=== PATIENT | male | born 1955 | race Caucasian/White ===

== ENCOUNTER 2016-07-02 15:18 | Inpatient (IN) | payer MEDICAID ==
[~2016-07-02] VITALS: Ht 182.9 cm; Wt 69.7 kg
[~2016-07-02 15:18] MED LIST: ALBU18HF INH; ALBU8.5H3 INH; AMIO200T42 PO; ASPI-621 PO; AZIT-14 PO; BUDE10.2 INH; CEFD300C2 PO; CEFT2FRO2 IV; CLOP75TA PO; DOCU-30 PO; ENAL2.5T PO; FLUT1AER INH; FURO-92 PO; GUAI600T22 PO; HYDR-3138 PO; HYDR-3144 PO; IPRA12.9 INH; IPRA15SP2 INH; LISI5TAB7 PO; METO25TA35 PO; METO50TA82 PO; OXYC5TAB3 PO; POTA20TA14 PO; PRED20TA PO; VORI200T PO
[2016-07-02] MEDS ORDERED: IBUP-1222 PO (15:44)
[2016-07-02] MEDS ORDERED: GABA-827 PO (15:44)
[2016-07-02] MEDS ORDERED: ENAL5TAB PO (15:44)
[2016-07-02] MEDS ORDERED: CEPH-368 PO (15:44)
[2016-07-02] MEDS ORDERED: CYCL-259 PO (15:44)
[2016-07-02 16:33] LABS: BLOOD UREA NITROGEN 10 mg/dL (7-18)
[2016-07-02 16:38] LABS: ACETAMINOPHEN < 2 mcg/mL (10-30)
[2016-07-02] MEDS ORDERED: SODIUM CHLORIDE 0.9% 1,000 ML IV ONE (17:13)
[2016-07-02] MEDS ORDERED: CEFAZOLIN PMX 1GM/50ML 50 ML ONE (17:25)
[2016-07-02] MEDS ORDERED: SODIUM CHLORIDE FLUSH 10ML SYR IVF ONE (17:30)
[2016-07-02] MEDS ORDERED: CEFAZOLIN PMX 1GM/50ML 50 ML IVPB ONE (17:30)
[2016-07-02] MEDS ORDERED: ONDANSETRON ODT 4 MG PO PRN (18:00)
[2016-07-02] MEDS ORDERED: LORazepam 1MG TABLET PO PRN (18:00)
[2016-07-02] MEDS ORDERED: IPRATROPIUM BROMIDE INH SCH (18:00)
[2016-07-02] MEDS ORDERED: ONDANSETRON 2MG/ML, 2ML IVP PRN (18:00)
[2016-07-02] MEDS ORDERED: POLYETHYLENE GLYCOL 17 GM PACKET PO PRN (18:00)
[2016-07-02] MEDS ORDERED: GABAPENTIN 300 MG CAPSULE PO PRN (18:00)
[2016-07-02] MEDS ORDERED: LABETALOL 5MG/ML, 20ML IV PRN (18:00)
[2016-07-02] MEDS ORDERED: BISACODYL 10 MG SUPP PR PRN (18:00)
[2016-07-02 18:44] LABS: DAU SCREEN DISCLAIMER
[2016-07-02 19:49] VITALS: BP 133/77
[2016-07-02] MEDS ORDERED: NICOTINE 14MG/24 HR PATCH.TD24 TD ONE (20:00)
[2016-07-02] MEDS ORDERED: ALBUTEROL SULFATE 2.5 MG/3 ML NPPB PRN (20:00)
[2016-07-02] MEDS: FUROSEMIDE 40 MG TABLET PO SCH (20:29)
[2016-07-02] MEDS: METOPROLOL TARTRATE 25 MG TABLET PO SCH (20:29)
[2016-07-02] MEDS: ACETAMINOPHEN 325 MG TABLET PO PRN (20:29)
[2016-07-02] MEDS: DOCUSATE 100 MG CAPSULE PO SCH (20:29)
[2016-07-02] MEDS: SODIUM CHLORIDE 0.9% 1,000 ML IV SCH (20:31)
[2016-07-03] MEDS ORDERED: ALBUTEROL/IPRATROPIUM 2.5MG/0.5MG, 3 ML NPPB PRN (03:30)
[2016-07-03] MEDS: OXYcodone IR 5MG TABLET PO PRN ×3 (05:27→20:38)
[2016-07-03] MEDS: METOPROLOL TARTRATE 25 MG TABLET PO SCH ×2 (05:28→17:58)
[2016-07-03] MEDS: FUROSEMIDE 40 MG TABLET PO SCH (05:28)
[2016-07-03 06:08] LABS: ASPARTATE AMINO TRANSFERASE 18 U/L (15-37); BLOOD UREA NITROGEN 9 mg/dL (7-18)
[2016-07-03] MEDS: SODIUM CHLORIDE 0.9% 1,000 ML IV SCH (07:14)
[2016-07-03 07:38] VITALS: BP 175/116
[2016-07-03] MEDS: MULTIVITAMIN 1 TABLET PO SCH (08:23)
[2016-07-03] MEDS: THIAMINE 100MG TABLET PO SCH (08:23)
[2016-07-03] MEDS: CYCLOBENZAPRINE 10 MG TABLET PO SCH (08:23)
[2016-07-03] MEDS: DOCUSATE 100 MG CAPSULE PO SCH ×2 (08:23→20:38)
[2016-07-03] MEDS: ENALAPRIL 5MG TABLET PO SCH (08:23)
[2016-07-03] MEDS: FOLIC ACID 1 MG TABLET PO SCH (08:23)
[2016-07-03 08:26] VITALS: BP 130/83
[2016-07-03] MEDS: FLUTICASONE/VILANTEROL 100-25MCG/INH INH SCH (11:45)
[2016-07-03 13:57] VITALS: BP 116/70
[2016-07-03] MEDS ORDERED: SODIUM CHLORIDE 0.9% 1,000 ML IV SCH ×3 (17:54)
[2016-07-03 18:17] VITALS: BP 122/79
[2016-07-03] MEDS: ALBUTEROL/IPRATROPIUM 2.5MG/0.5MG, 3 ML NPPB PRN (20:00)
[2016-07-04 01:34] VITALS: BP 106/70
[2016-07-04] MEDS: OXYcodone IR 5MG TABLET PO PRN (05:25)
[2016-07-04] MEDS: METOPROLOL TARTRATE 25 MG TABLET PO SCH ×2 (05:25→17:48)
[2016-07-04 05:44] LABS: BLOOD UREA NITROGEN 16 mg/dL (7-18)
[2016-07-04 07:17] VITALS: BP 121/84
[2016-07-04] MEDS: ENALAPRIL 5MG TABLET PO SCH (08:40)
[2016-07-04] MEDS: THIAMINE 100MG TABLET PO SCH (08:40)
[2016-07-04] MEDS: CYCLOBENZAPRINE 10 MG TABLET PO SCH (08:40)
[2016-07-04] MEDS: DOCUSATE 100 MG CAPSULE PO SCH ×2 (08:40→21:00)
[2016-07-04] MEDS: MULTIVITAMIN 1 TABLET PO SCH (08:40)
[2016-07-04] MEDS: FOLIC ACID 1 MG TABLET PO SCH (08:40)
[2016-07-04] MEDS: FLUTICASONE/VILANTEROL 100-25MCG/INH INH SCH (08:41)
[2016-07-04 13:06] VITALS: BP 131/83
[2016-07-04] MEDS ORDERED: FURO40TA6 PO (14:52)
[2016-07-04] MEDS: ACETAMINOPHEN 325 MG TABLET PO PRN (17:51)
[2016-07-04 18:12] VITALS: BP 115/78
[2016-07-04 19:33] VITALS: BP 136/92
[2016-07-04] MEDS ORDERED: ALBUTEROL SULFATE 2.5 MG/3 ML ONE (20:06)
[2016-07-04] MEDS ORDERED: IPRATROPIUM 0.5 MG/2.5 ML INHA ONE (20:07)
[2016-07-04] MEDS: ALBUTEROL/IPRATROPIUM 2.5MG/0.5MG, 3 ML NPPB PRN (20:26)
[2016-07-05 05:25] LABS: BLOOD UREA NITROGEN 15 mg/dL (7-18)
[2016-07-05] MEDS ORDERED: ASPIRIN 81 MG TABLET CHEW PO SCH (06:00)
[2016-07-05] MEDS: METOPROLOL TARTRATE 25 MG TABLET PO SCH ×2 (06:09→17:50)
[2016-07-05 06:15] VITALS: BP 118/84
[2016-07-05] MEDS ORDERED: FUROSEMIDE 40 MG TABLET PO SCH (07:30)
[2016-07-05 07:42] VITALS: BP 97/68
[2016-07-05] MEDS: DOCUSATE 100 MG CAPSULE PO SCH ×2 (08:06→21:00)
[2016-07-05] MEDS: CYCLOBENZAPRINE 10 MG TABLET PO SCH (08:06)
[2016-07-05] MEDS: MULTIVITAMIN 1 TABLET PO SCH (08:07)
[2016-07-05] MEDS: FOLIC ACID 1 MG TABLET PO SCH (08:07)
[2016-07-05] MEDS: ENALAPRIL 5MG TABLET PO SCH (08:07)
[2016-07-05] MEDS: THIAMINE 100MG TABLET PO SCH (08:07)
[2016-07-05] MEDS: FLUTICASONE/VILANTEROL 100-25MCG/INH INH SCH (08:10)
[2016-07-05] MEDS ORDERED: CLOPIDOGREL 75 MG TABLET PO SCH (09:00)
[2016-07-05] MEDS ORDERED: ALBUTEROL SULFATE 2.5 MG/3 ML NPPB PRN (09:30)
[2016-07-05] MEDS: IPRATROPIUM 0.5 MG/2.5 ML INHA HHN SCH ×3 (09:30→20:37)
[2016-07-05] MEDS ORDERED: ALBUTEROL SULFATE 2.5 MG/3 ML ONE (14:09)
[2016-07-05 19:49] VITALS: BP 113/82
== END 2016-07-05 22:31 | DRG 605 ==
LOC: ED 17:24 → EDIP 17:25 → ED 17:47 → 3NE 19:15 → 3E 07-04 16:26
PROVIDERS: ADMIT Hospitalist; ATTEND Hospitalist
DX: S51.812A Laceration without foreign body of left forearm, initial encounter (principal); I48.92 Unspecified atrial flutter; I42.9 Cardiomyopathy, unspecified; E87.1 Hypo-osmolality and hyponatremia; S51.832A Puncture wound without foreign body of left forearm, initial encounter; X78.1XXA Intentional self-harm by knife, initial encounter; Y93.89 Activity, other specified; Y92.89 Other specified places as the place of occurrence of the external cause; Y99.8 Other external cause status; J44.9 Chronic obstructive pulmonary disease, unspecified; I50.9 Heart failure, unspecified; I11.0 Hypertensive heart disease with heart failure; I48.91 Unspecified atrial fibrillation; F12.90 Cannabis use, unspecified, uncomplicated; Z59.0 Homelessness; Z95.2 Presence of prosthetic heart valve; Z85.840 Personal history of malignant neoplasm of eye; Z85.828 Personal history of other malignant neoplasm of skin; F17.210 Nicotine dependence, cigarettes, uncomplicated; D72.829 Elevated white blood cell count, unspecified; Z91.19 Patient's noncompliance with other medical treatment and regimen; E87.8 Other disorders of electrolyte and fluid balance, not elsewhere classified; D75.1 Secondary polycythemia; D75.89 Other specified diseases of blood and blood-forming organs
CPT/HCPCS: 36415; 80048; 80053; 80307; 80329; 82040; 83735; 83930; 83935; 84100; 84295; 84300; 85025; 93005; 93931; 94640; 96365; J0690; J7613; J7620; J7644; G0480; J7030

== ENCOUNTER → 2016-07-10 | Outpatient (CLI) | payer MEDICAID ==
[~2016-07-10] MED LIST changes: -AZIT-14 PO; +AZIT250T89 PO; -CEFD300C2 PO; +CEFD300C37 PO; +CEPH-368 PO; +CYCL-259 PO; +ENAL5TAB PO; +FURO40TA6 PO; +GABA-827 PO; +IBUP-1222 PO
== END | disposition home or self-care (01) ==
LOC: CFH 08:52
PROVIDERS: ATTEND Internal Medicine Cardiovascular Disease
DX: I08.1 Rheumatic disorders of both mitral and tricuspid valves (principal); I51.7 Cardiomegaly; J44.9 Chronic obstructive pulmonary disease, unspecified; I25.2 Old myocardial infarction; I10 Essential (primary) hypertension; F17.200 Nicotine dependence, unspecified, uncomplicated; Z85.828 Personal history of other malignant neoplasm of skin
CPT/HCPCS: 93306

== ENCOUNTER → 2017-09-29 | Outpatient (CLI) | payer MEDICAID ==
[~2017-09-29] MED LIST changes: -ALBU8.5H3 INH; +ALBU8.5H8 INH; +DOCU-131 PO; -DOCU-30 PO; -GUAI600T22 PO; +GUAI600T31 PO; -HYDR-3138 PO; -HYDR-3144 PO; +HYDR-3237 PO; +HYDR-3245 PO
== END | disposition home or self-care (01) ==
LOC: CFH 10:43
PROVIDERS: ATTEND Internal Medicine Cardiovascular Disease
DX: I08.1 Rheumatic disorders of both mitral and tricuspid valves (principal); I42.9 Cardiomyopathy, unspecified; I10 Essential (primary) hypertension; E78.5 Hyperlipidemia, unspecified; F17.210 Nicotine dependence, cigarettes, uncomplicated
CPT/HCPCS: 93306

== ENCOUNTER → 2018-06-03 | Outpatient (CLI) | payer MEDICAID ==
[~2018-06-03] MED LIST changes: -ASPI-621 PO; +ASPI81TA45 PO
== END | disposition home or self-care (01) ==
LOC: CVU 09:41
PROVIDERS: ATTEND Internal Medicine Cardiovascular Disease
DX: I70.292 Other atherosclerosis of native arteries of extremities, left leg (principal); I74.5 Embolism and thrombosis of iliac artery; I70.201 Unspecified atherosclerosis of native arteries of extremities, right leg; I11.0 Hypertensive heart disease with heart failure; I50.9 Heart failure, unspecified; J44.9 Chronic obstructive pulmonary disease, unspecified; F12.90 Cannabis use, unspecified, uncomplicated; F17.200 Nicotine dependence, unspecified, uncomplicated; Z79.899 Other long term (current) drug therapy; Z91.018 Allergy to other foods
CPT/HCPCS: 93922; 93925; 93978